=== PATIENT | male | born 1990 | race African-American/Black ===

== ENCOUNTER 2021-11-28 22:31 | Emergency (ER) | payer BC ==
[2021-11-29] MEDS ORDERED: LIDOCAINE 1% MPF 5 ML VIAL ONE (00:06)
[2021-11-29] MEDS ORDERED: TETANUS & DIPHTHERIA TOX,ADULT 0.5 ML VIAL ONE (00:08)
[2021-11-29] MEDS ORDERED: AMOX/K CLAV 875 MG TAB ONE (00:18)
--- NOTE | 2021-11-29 00:24 | ER ---
Nurse's Notes [facility] Name: Jey Spears Age: 31 yrs Sex: Male : 1990 Arrival Date: 11/28/2021 Time: 22:35 Bed 19 Private MD: Diagnosis: Bitten by dog;Laceration without foreign body of lip Presentation: 11/28 22:38 Chief complaint: Patient states: "A dog bite. I went my landlords house to [employer] a tw5 house [place] and the dog jumped and bit me. I wouldn't say it was aggressive, just more excited because it was the first time that the dog had seen me." Patient points to his lip. Coronavirus screen: Vaccine status: Patient reports being unvaccinated. Ebola Screen: Patient negative for fever greater than or equal to 101.5 degrees Fahrenheit, and additional compatible Ebola Virus Disease symptoms Patient denies exposure to infectious person. Patient denies travel to an Ebola-affected area in the 21 days before illness onset. Initial Sepsis Screen: Does the patient meet any 2 criteria? No. Patient's initial sepsis screen is negative. Does the patient have a suspected source of infection? No. Patient's initial sepsis screen is negative. Risk Assessment: Do you want to hurt yourself or someone else? Patient reports no desire to harm self or others. Onset of symptoms was November 28, 2021 at 09:40. 22:38 Method Of Arrival: Ambulatory tw5 22:38 Acuity: YESICA 4 tw5 Triage Assessment: 22:40 Bite description: bite sustained to upper [place] border is from animal, was tw5 sustained 30-60 minutes ago. by a dog, animal information: Appearance: appeared well, vaccination(s) is current. General: Appears in no apparent distress. Behavior is calm, cooperative, appropriate for age. Pain: Pain currently is 4 out of 10 on a pain scale. Historical: - Allergies: 22:40 No Known Allergies; tw5 - Home Meds: 22:40 None [Active]; tw5 - PMHx: 22:40 None; tw5 - PSHx: 22:40 ankle sugery- right 2016; tw5 - Immunization history:: Flu vaccine is not up to date. Patient has never been vaccinated. - Social history:: Smoking status: Reported history of juuling and/or vaping. Screenin:54 Abuse screen: Denies threats or abuse. Nutritional screening: No deficits noted. sv1 Tuberculosis screening: No symptoms or risk factors identified. 22:57 Fall Risk None identified. sv1 Assessment: 22:57 Derm: Skin is normal, black. sv1 22:58 Derm: Skin is intact. sv1 Vital Signs: 22:38 BP 149 / 105; Pulse 89; Resp 18; Temp 98.8(TE); Pulse Ox 96% on R/A; Weight 83.91 kg; tw5 Height 5 ft. 5 in. (165.10 cm); Pain 4/10; 22:54 BP 139 / 101 RA Sitting (auto/reg); Pulse 97 MON; Resp 16 S; Temp 99.2(O); Pulse Ox 97% sv1 on R/A; Weight 84.37 kg; Height 5 ft. 5 in. (165.10 cm); Pain 4/10; 11/29 00:22 BP 131 / 84 LA Sitting (auto/reg); Pulse 98 MON; Resp 16 S; Temp 98.4; sv1 11/28 22:54 Body Mass Index 30.95 (84.37 kg, 165.10 cm) sv1 ED Course: 11/28 22:35 Patient arrived in ED. ja2 22:40 Triage completed. tw5 22:40 Arm band placed on right wrist. tw5 22:47 Teo Putnam, RN is Primary Nurse. sv1 22:54 Patient has correct armband on for positive identification. Bed in low position. Call sv1 light in reach. Side rails up X 1. Child being held by parent. 23:01 Cristina Fitzpatrick FNP-C is [facility]. kb 23:01 Mahad Zamora MD is Attending Physician. kb 11/29 00:28 No provider procedures requiring assistance completed. Patient did not have IV access sv1 during this emergency room visit. Administered Medications: 00:09 Drug: Tetanus-Diphtheria Toxoid Adult 0.5 ml {Technical Recruiter: [employer]. Exp: sv1 02/21/2023. Lot #: [id number]. } Route: IM; Site: right deltoid; 00:25 Follow up: Response: No adverse reaction sv1 00:11 Drug: Lidocaine (1 %) 1 vials Volume: 5 ml; Route: Infiltration; sv1 00:25 Follow up: Response: No adverse reaction sv1 00:16 Drug: Augmentin (Amoxicillin-Clavulanate) 875 mg Route: PO; sv1 00:24 Follow up: Response: No adverse reaction sv1 Outcome: 00:23 Discharge ordered by MD. miner 00:28 Discharged to home ambulatory. sv1 00:28 Condition: good 00:28 Discharge instructions given to patient, family. 00:29 Patient left the ED. sv1 Signatures: Cristina Fitzpatrick FNP-C FNP-Laura Hunt Tiffany tw5 Teo Putnam, RN RN sv1
--- NOTE | 2021-11-29 00:24 | EDPHYS ---
Physician Documentation [facility] Name: Jey Spears Age: 31 yrs Sex: Male : 1990 Arrival Date: 11/28/2021 Time: 22:35 Bed 19 Private MD: ED Physician Mahad Zamora HPI: 11/28 23:27 This 31 yrs old Male presents to ER via Ambulatory with complaints of Dog Bite. kb 23:27 The patient was bitten on the upper [place] border, by a dog, for an unknown reason, kb at a friend's house. Onset: The symptoms/episode began/occurred just prior to arrival. Animal information: The animal was reported to appear healthy. Secondary to the bite the patient reports a laceration, that is superficial. Associated signs and symptoms: The patient has no apparent associated signs or symptoms. Severity of symptoms: At their worst the symptoms were mild, in the emergency department the symptoms are unchanged. The patient has not experienced similar symptoms in the past. The patient has not recently seen a physician. Historical: - Allergies: 22:40 No Known Allergies; tw5 - Home Meds: 22:40 None [Active]; tw5 - PMHx: 22:40 None; tw5 - PSHx: 22:40 ankle sugery- right 2016; tw5 - Immunization history:: Flu vaccine is not up to date. Patient has never been vaccinated. - Social history:: Smoking status: Reported history of juuling and/or vaping. ROS: 23:26 Constitutional: Negative for fever, chills, and weight loss. kb 23:26 Skin: Positive for laceration(s), of the upper [place] border. 23:26 All other systems are negative. Exam: 23:27 Constitutional: This is a well developed, well nourished patient who is awake, alert, kb and in no acute distress. Head/Face: Normocephalic, atraumatic. ENT: Moist Mucous membranes Respiratory: Respirations even and unlabored. No increased work of breathing. Talking in full sentences MS/ Extremity: Pulses equal, no cyanosis. Neurovascular intact. Full, normal range of motion. Neuro: Awake and alert, GCS 15, oriented to person, place, time, and situation. Moves all extremities. Normal gait. Psych: Awake, alert, with orientation to person, place and time. Behavior, mood, and affect are within normal limits. 23:27 Skin: injury, laceration(s), the wound is approximately 0.5 cm(s), of the upper [place]mil[place] border, that can be described as clean, no foreign body, irregular, without bleeding. Vital Signs: 22:38 BP 149 / 105; Pulse 89; Resp 18; Temp 98.8(TE); Pulse Ox 96% on R/A; Weight 83.91 kg; tw5 Height 5 ft. 5 in. (165.10 cm); Pain 4/10; 22:54 BP 139 / 101 RA Sitting (auto/reg); Pulse 97 MON; Resp 16 S; Temp 99.2(O); Pulse Ox 97% sv1 on R/A; Weight 84.37 kg; Height 5 ft. 5 in. (165.10 cm); Pain 4/10; 11/29 00:22 BP 131 / 84 LA Sitting (auto/reg); Pulse 98 MON; Resp 16 S; Temp 98.4; sv1 11/28 22:54 Body Mass Index 30.95 (84.37 kg, 165.10 cm) sv1 Laceration: 00:22 Wound Repair of 0.5cm ( 0.2in ) subcutaneous laceration to upper vermil[place] border. kb Irregularly shaped.. Skin/tissue flap noted.. Distal neuro/vascular/tendon intact. Anesthesia: Wound infiltrated with 1 mls of 1% lidocaine. Wound prep: Extensive cleansing with hibiclenz by me, Wound irrigation with saline by me. Skin closed with 2 5-0 fast absorbing gut using interrupted sutures and sterile technique. Patient tolerated well. MDM: 11/28 23:02 Patient medically screened. kb 23:26 Data reviewed: vital signs, nurses notes. Data interpreted: Pulse oximetry: on room air kb is 97 %. Interpretation: normal. 11/29 00:22 Counseling: I had a detailed discussion with the patient and/or guardian regarding: the kb historical points, exam findings, and any diagnostic results supporting the discharge/admit diagnosis, the need for outpatient follow up, a family practitioner, to return to the emergency department if symptoms worsen or persist or if there are any questions or concerns that arise at home. 11/28 23:09 Order name: Dressing - Wound; Complete Time: 00:11 kb 11/28 23:09 Order name: Gloves, Sterile; Complete Time: 00:11 kb 11/28 23:09 Order name: Setup Suture Tray; Complete Time: 00:11 kb Administered Medications: 00:09 Drug: Tetanus-Diphtheria Toxoid Adult 0.5 ml {Application Systems Administrator: [employer]. Exp: sv1 02/21/2023. Lot #: [id number]. } Route: IM; Site: right deltoid; 00:25 Follow up: Response: No adverse reaction sv1 00:11 Drug: Lidocaine (1 %) 1 vials Volume: 5 ml; Route: Infiltration; sv1 00:25 Follow up: Response: No adverse reaction sv1 00:16 Drug: Augmentin (Amoxicillin-Clavulanate) 875 mg Route: PO; sv1 00:24 Follow up: Response: No adverse reaction sv1 Disposition: 02:16 Co-signature as Attending Physician, Mahad Zamora MD. [email or web address] Disposition Summary: 11/29/21 00:23 Discharge Ordered Location: Home kb Condition: Stable kb Diagnosis - Bitten by dog kb - Laceration without foreign body of lip kb Followup: kb - With: Emergency Department - When: As needed - Reason: Worsening of condition Followup: kb - With: Private Physician - When: 2 - 3 days - Reason: Recheck today's complaints, Continuance of care, Re-evaluation by your physician Discharge Instructions: - Discharge Summary Sheet kb - Animal Bite, Adult, [id number] kb Forms: - Medication Reconciliation Form kb - Thank You Letter kb - Antibiotic Education kb - Prescription Opioid Use kb Prescriptions: - Augmentin 875-125 mg Oral Tablet - take 1 tablet by ORAL route every 12 hours for 10 days; 20 tablet; Refills: 0, kb Product Selection Permitted Signatures: Cristina Fitzpatrick, Mahad Lawson MD MD 7 Michelle Trujillo [facility] Teo Putnam RN RN sv1
[2021-11-29 00:35] VITALS: O2SAT 97
[2021-11-29 00:36] VITALS: BP 131/84; TEMP 98.4
== END 2021-11-29 00:29 | disposition home or self-care (01) ==
LOC: ER 22:31
PROC: 0CQ0XZZ Repair Upper Lip, External Approach (ICD-10-PCS; principal; 2021-11-29)
DX: S01.511A Laceration without foreign body of lip, initial encounter (principal); W54.0XXA Bitten by dog, initial encounter; Z23 Encounter for immunization
CPT/HCPCS: 90471; 90714; 99283